=== PATIENT | female | born 1990 | race Caucasian/White ===

== ENCOUNTER 2020-06-11 19:56 | Emergency (ER) | payer OTHER ==
[2020-06-11] MEDS ORDERED: Ibuprofen 800 MG TAB ONE (20:28)
== END 2020-06-11 20:30 | disposition home or self-care (01) ==
LOC: NAV ERS 19:56
DX: N61.0 Mastitis without abscess (principal); J45.909 Unspecified asthma, uncomplicated
CPT/HCPCS: 99282

== ENCOUNTER 2020-09-20 15:11 | Emergency (ER) | payer OTHER ==
[2020-09-20] MEDS ORDERED: Tetracaine HCl 0.5% Ophth Soln 2 ML Bottle ONE (15:28)
[2020-09-20] MEDS ORDERED: Fluorescein Opthalmic Strip ONE (15:28)
== END 2020-09-20 15:58 | disposition home or self-care (01) ==
LOC: NAV ERS 15:11
DX: H00.14 Chalazion left upper eyelid (principal); J45.909 Unspecified asthma, uncomplicated
CPT/HCPCS: 99283

== ENCOUNTER 2020-10-14 20:50 | Emergency (ER) | payer OTHER ==
[2020-10-14] MEDS ORDERED: Ondansetron ODT 4 MG TAB ONE (21:04)
[2020-10-14 21:16] LABS: Bilirubin Negative (Negative); Blood, Urine Moderate (Negative); Clarity Clear (Clear); Glucose, Urine (Dipstick) Negative (Negative); Ketone, Urine 80 mg/dL (Negative); Leukocyte Negative (Negative); Nitrite Negative (Negative); Protein, Urine (Dipstick) Negative (Neg-Trace); Specific Gravity, Urine 1.025 (1.005-1.030); Urobilinogen 0.2 mg/dL (Less than 2)
[2020-10-14 21:18] LABS: Pregnancy Test - Urine (BHCG) Negative (Negative); Pregu Control Background? CLEAR/WHITE (CLR/WHITE); Pregu Control Bar Appear? YES (CONTROL BAR); Specific Gravity 1.025 (1.002-1.036)
[2020-10-14 21:19] LABS: Squamous Epithelial 0-3 HPF (0-3); WBC/HPF 0-3 HPF (0-3)
[2020-10-14 21:20] LABS: Bacteria/HPF Rare-Few HPF (None Seen)
== END 2020-10-14 21:47 | disposition home or self-care (01) ==
LOC: NAV ERS 20:50
DX: R11.2 Nausea with vomiting, unspecified (principal); J45.909 Unspecified asthma, uncomplicated
CPT/HCPCS: 81003; 81015; 81025; 99284; Q0162

== ENCOUNTER 2020-11-18 06:46 | Emergency (ER) | payer OTHER ==
[2020-11-18 07:36] LABS: #Basophils 0.1 thou/uL (0.0-0.2); #Eosinphils 0.1 thou/uL (0.0-0.7); #Lymphocytes 1.6 thou/uL (1.20-3.40); #Monocytes 0.5 thou/uL (0.11-0.59); #Neutrophils 2.8 thou/uL (1.40-6.50); %Eosinophils 2.9 % (0.0-10.0); %Lymphocytes 31.4 % (21.0-51.0); %Neutrophils 55.7 % (42.0-75.0); Hemoglobin 11.6 g/dL (12.0-16.0); Mean Corpuscular HGB CONC 31.7 g/dL (32.0-36.0); Mean Corpuscular Hemoglobin 29.8 pg (27.0-31.0); Mean Corpuscular Volume 93.9 fL (78.0-98.0); Mean Platelet Volume 9.1 fL (7.4-10.4); Platelet Count 143 thou/uL (130-400); RBC Distribution Width 11.4 % (11.5-14.5); Red Blood Cell (RBC) Count 3.89 mill/uL (4.20-5.40)
== END 2020-11-18 08:10 | disposition home or self-care (01) ==
LOC: NAV ERS 06:46
DX: O03.9 Complete or unspecified spontaneous abortion without complication (principal)
CPT/HCPCS: 36415; 84702; 85025; 99284

== ENCOUNTER 2021-10-08 21:54 | Emergency (ER) | payer OTHER ==
[2021-10-08] MEDS ORDERED: Sodium Chloride 0.9% 1,000 ML ONE (22:21)
[2021-10-08] MEDS ORDERED: Acetaminophen 500 MG TAB ONE (22:21)
[2021-10-08] MEDS ORDERED: Ondansetron PF 4 MG/2 ML Vial ONE (22:21)
== END 2021-10-08 23:26 | disposition home or self-care (01) ==
LOC: NAV ERS 21:54
DX: O03.4 Incomplete spontaneous abortion without complication (principal)
CPT/HCPCS: J2405; J7050